=== PATIENT | male | born 1945 | race Caucasian/White ===

== ENCOUNTER 2022-06-16 13:04 | Emergency (ER) | payer OTHER ==
--- OUTSIDE RECORDS SUMMARY | 2022-06-16 13:08 | XMS REPORT | Continuity of Care Document ---
:1945 Author Organization [facility] t Address [address] [place] [address] Care Team Providers Name Role Phone Miller_S_AH Attending Clinician Unavailable Jayashree-Mbayo_A_AH Attending Clinician Unavailable Miller_S_AH Admitting Clinician Unavailable Jayashree-Mbayo_A_AH Admitting Clinician Unavailable Payers Payer Name Policy Type Policy Number Effective Date Expiration Date S keithce [employer] [place] - [id number] 2019 [employer] 00:00:00 (MEDICARE REPLACEMENT/ADVANT AGE - HMO) Problems Condition Condition Condition Status Onset Resolution Last Treating Co mments Source Name Details Category Date Date Treatment Clinician Date Rheumatoid Rheumatoid Problem Active [facility] arthritis Arthritis 01-18 Fami ly 00:00: Practic 00 e Allergies, Adverse Reactions, Alerts This patient has no known allergies or adverse reactions. Social History Smoking Status Start Date Stop Date Source Former Smoker [facility] ractice Medications This patient has no known medications. Vital Signs Vital Name Observation Time Observation Value Comments Source BP Systolic 2021-01-18 00:00:00 115 mm[Hg] [facility] Body Weight 2021-01-18 00:00:00 210 [lb_av] [facility] BP Diastolic 2021-01-18 00:00:00 80 mm[Hg] [facility] Height 2021-01-18 00:00:00 68 [in_i] [facility] BMI (Body Mass 2021-01-18 00:00:00 31.9 kg/m2 [facility]) Practice Procedures This patient has no known procedures. Plan of Care Planned Activity Planned Date Details Comments Source Future Scheduled Test Patient denies any [facility] pain or discomfirt. Practice Patient denies taking any meds at this time. Patient report he is able to see his doc when needed. Patient encouarged to choose healther food choices and increase activites as tolerated. [code = Patient denies any pain or discomfirt. Patient denies taking any meds at this time. Patient report h] Instructions [facility] Encounters Start End Encounter Admission Attending Care Care Encounter Source Date/Time Date/Time Type Type Clinicians Facility Department ID 2021-03-17 2021-03-17 Outpatient Miller_S_AH VFP VFP [id number] 06:24:00 06:24:00 [id number] Family Practic e 2021-02-16 2021-02-16 Outpatient Jayashree-Mbayo VFP VFP [facility] 02:43:00 02:43:00 _A_AH [id number] Family Practic e 2021-01-24 2021-01-24 Outpatient Jayashree-Mbayo VFP VFP [facility]94 [facility] 09:05:00 09:05:00 _A_AH [id number] Family Practic e 2021-01-23 2021-01-23 Outpatient Jayashree-Mbayo VFP VFP 794 [facility] 11:13:00 11:13:00 _A_AH [id number] Family Practic e 2021-01-19 2021-01-19 Outpatient Jayashree-Mbayo VFP VFP 794 [facility] 09:44:00 09:44:00 _A_AH [id number] Family Practic e 2021-01-18 2021-01-18 Elvia VFP [place] - [id number] [facility]00[facility] Derrick razo SOCIAL SERVICES MANAGER: Medical - Practi c [email or web address] [facility], [address] [address], [place] [address] , Ph. 2020-04-14 2020-04-14 Outpatient Jayashree-Mbayo VFP VFP [facility] 12:32:00 12:32:00 _A_AH [id number] Family Practic e 2020-04-14 2020-04-14 Outpatient Jayashree-Mbayo VFP VFP 794 [facility] 12:32:00 12:32:00 _A_AH [id number] Family Practic e 2019-11-19 2019-11-19 Outpatient JayashreeEvy VFP VFP 794 - [facility] 07:18:00 07:18:00 _A_AH [id number] Family Practic e 2019-11-19 2019-11-19 Outpatient Jayashree-Wendyo VFP VFP 794 [facility] 07:18:00 07:18:00 _A_AH [id number] Family Practic e Results This patient has no known results.
[2022-06-16 14:33] LABS: Absolute Lymphocytes (CBC) 0.7 K/uL (0.7-4.9); Hematocrit 44.4 % (39.6-49.0); MCV 82.8 fL (80-100); MPV 11.6 fL (7.6-11.3); RBC Red Blood Cell Count 5.37 M/uL (4.33-5.43)
[2022-06-16 14:35] LABS: Urine Blood 3+ (Negative); Urine Glucose Trace (Negative); Urine Protein 3+ (Negative); Urine Specific Gravity 1.025 (1.005-1.030); Urine pH 5.5 (5.0-7.0)
[2022-06-16 14:37] LABS: Protime INR 1.04
[2022-06-16 14:47] LABS: Albumin 3.8 g/dL (3.4-5.0); Bilirubin Total 0.6 mg/dL (0.2-1.0); Potassium 3.9 mmol/L (3.5-5.1); Protein, Total 7.3 g/dL (6.4-8.2)
[2022-06-16 14:56] LABS: Urine Bacteria 20-50 /HPF (<20); Urine Mucus 4+ /HPF (None Seen); Urine RBC >50 /HPF (None Seen); Urine WBC Clump Many /HPF (None Seen)
[2022-06-16] MEDS ORDERED: LIDOCAINE VISCOUS 2% SOLN 15 ML UDC ONE (15:21)
[2022-06-16] MEDS ORDERED: levoFLOXacin 750 MG TAB ONE (15:21)
[2022-06-16] MEDS ORDERED: CEFTRIAXONE 1000 MG/VIAL ONE (15:21)
--- NOTE | 2022-06-16 15:37 | RAD REPORT ---
EXAM DESCRIPTION: CTStone Protocol - 06/16/2022 3:20 pm CLINICAL HISTORY: hematuria COMPARISON: Stone Protocol dated 05/29/2016; CT-STONE PROTOCOL dated 05/18/2009 TECHNIQUE: CT of the abdomen and pelvis was performed. All CT scans are performed using dose optimization technique as appropriate and may include automated exposure control or mA/KV adjustment according to patient size. FINDINGS: Lower chest: Scattered coronary artery calcifications. Liver: No acute abnormality or suspicious lesions. Biliary: Cholecystectomy. Stomach: No significant focal abnormality. Duodenum: No significant focal abnormality. Pancreas: No significant abnormality. Spleen: No significant abnormality. Adrenal: No suspicious lesions. Kidney/ureter: No hydronephrosis. No renal calculi. Retroperitoneum: No retroperitoneal adenopathy. Vascular: No aneurysm. Bowel: No significant focal abnormality. Normal appendix. Peritoneum: No ascites or free air. Bladder: The bladder is largely obscured by streak artifact. The wall does appear thick and stranding may be present. Reproductive: No adnexal masses. Bones: No acute fracture. Bilateral shoulder arthroplasties. Bridging osteophytes in the lower thorac ic spine. Other: n/a IMPRESSION: No acute intra-abdominal or pelvic finding. No urinary tract calculi identified. Note th at the bladder wall is probably thick but the bladder is largely obscured by streak artifact from the hip arthroplasties. Cystoscopy could better evaluate if clinically indicated.
--- NOTE | 2022-06-16 16:13 | EDPHYS ---
Physician Documentation [facility] Name: Rj Parkinson Age: 76 yrs Sex: Male : 1945 Arrival Date: 06/16/2022 Time: 13:09 Bed 13 Private MD: Gopi Thacker ED Physician Jacky Winkler HPI: 06/16 13:50 This 76 yrs old Male presents to ER via Ambulatory with complaints of Urinary Retention.cp 13:50 The patient presents with urinary symptoms, unable to void, hematuria. cp 13:50 Onset: The symptoms/episode began/occurred last night. cp 13:50 Associated signs and symptoms: Pertinent positives: pelvic pain, Pertinent negatives: cp constipation, diarrhea, fever, vomiting. Severity of symptoms: in the emergency department the symptoms are unchanged, despite home interventions. Historical: - Allergies: 13:29 Latex, Natural Rubber; kr3 - Home Meds: 16:21 glipizide 10 mg Oral tab 2 times per day [Active]; Lyrica Oral [Active]; Nexium 20 mg jg9 Oral cpDR 2 times per day [Active]; nisoldipine 17 mg Oral Tb24 BID [Active]; - PMHx: 13:29 Cancer; kr3 16:21 Cholelithiasis; COPD; Diabetes - IDDM; jg9 - PSHx: 13:29 hip replacement x2; kr3 - Immunization history:: Adult Immunizations not up to date. - Social history:: Smoking status: Patient reports use of chewing tobacco. ROS: 13:55 Constitutional: Negative for body aches, chills, fever, poor PO intake. cp 13:55 Eyes: Negative for injury, pain, redness, and discharge. cp 13:55 ENT: Negative for drainage from ear(s), ear pain, sore throat, difficulty swallowing, difficulty handling secretions. 13:55 Cardiovascular: Negative for chest pain, edema, palpitations. 13:55 Respiratory: Negative for cough, shortness of breath, wheezing. 13:55 Abdomen/GI: Negative for vomiting, diarrhea, constipation. 13:55 Back: Negative for pain at rest, pain with movement. 13:55 : Positive for pelvic pain, hematuria, difficulty urinating, Negative for testicular pain 13:55 Neuro: Negative for altered mental status, headache, syncope, weakness. 13:55 All other systems are negative. Exam: 14:00 Constitutional: The patient appears in no acute distress, alert, awake, cp non-diaphoretic, non-toxic, well developed, well nourished. 14:00 Head/Face: Normocephalic, atraumatic. cp 14:00 Eyes: Periorbital structures: appear normal, Conjunctiva: normal, no exudate, no injection, Sclera: no appreciated abnormality, Lids and lashes: appear normal, bilaterally. 14:00 ENT: External ear(s): are unremarkable, Nose: is normal, Mouth: Lips: moist, Oral mucosa: pink and intact, moist, Posterior pharynx: Airway: no evidence of obstruction, patent. 14:00 Chest/axilla: Inspection: normal. 14:00 Cardiovascular: Rate: normal, Edema: is not appreciated, JVD: is not appreciated. 14:00 Respiratory: the patient does not display signs of respiratory distress, Respirations: normal, no use of accessory muscles, no retractions, labored breathing, is not present, Breath sounds: are clear throughout. 14:00 Abdomen/GI: Exam negative for discomfort, distension, guarding, Inspection: abdomen appears normal. 14:00 Back: pain, is absent, ROM is normal. 14:00 Neuro: Orientation: to person, place \T\ time. Mentation: is normal, Motor: moves all fours, strength is normal, Gait: is steady. Vital Signs: 13:27 BP 148 / 69; Pulse 78; Resp 20; Temp 97.9; Pulse Ox 98% on R/A; Weight 93.89 kg; Height kr3 5 ft. 8 in. (172.72 cm); Pain 10/10; 16:00 BP 130 / 78; Pulse 80; Resp 17 S; Pulse Ox 97% on R/A; jg9 13:27 Body Mass Index 31.47 (93.89 kg, 172.72 cm) kr3 MDM: 13:37 Patient medically screened. cp 14:00 Differential diagnosis: UTI, urinary retention, prostatitis, urethritis. cp 16:12 Data reviewed: vital signs, nurses notes, lab test result(s), radiologic studies, CT cp scan. 16:12 Counseling: I had a detailed discussion with the patient and/or guardian regarding: the cp historical points, exam findings, and any diagnostic results supporting the discharge/admit diagnosis, lab results, radiology results, the need for outpatient follow up, a urologist, to return to the emergency department if symptoms worsen or persist or if there are any questions or concerns that arise at home. Response to treatment: the patient's symptoms have markedly improved after treatment, and as a result, I will discharge patient. 06/16 13:45 Order name: CBC with Diff; Complete Time: 14:53 06/16 14:53 Interpretation: Normal except: PLT 131; MPV 11.6; JIGNESH% 81.9; LYM% 8.0. 06/16 13:45 Order name: CMP; Complete Time: 14:53 06/16 13:45 Order name: Lipase; Complete Time: 14:53 06/16 13:45 Order name: Urine Microscopic Only; Complete Time: 15:02 06/16 13:45 Order name: PT-INR; Complete Time: 14:53 06/16 13:45 Order name: Ptt, Activated; Complete Time: 14:53 06/16 13:45 Order name: IV Saline Lock; Complete Time: 14:36 06/16 13:45 Order name: Labs collected and sent; Complete Time: 14:36 06/16 14:36 Order name: Urine Dipstick-Ancillary; Complete Time: 14:53 [facility] 06/16 14:54 Interpretation: Normal except: UKET 1+; UBLD 3+; UPROT 3+; UNIT Positive; UESTR 3+. 06/16 15:00 Order name: Urine Culture [facility] 06/16 15:04 Order name: CT Stone Protocol 06/16 15:08 Order name: Stone Protocol; Complete Time: 16:07 [facility] 06/16 13:45 Order name: Urine Dipstick-Ancillary (obtain specimen); Complete Time: 14:36 Administered Medications: 15:48 Drug: Rocephin (cefTRIAXone) 1 grams Route: IV; Rate: calculated rate; Site: right jg9 antecubital; 16:22 Follow up: IV Status: Completed infusion; IV Intake: 10ml j9 15:48 Drug: LevaQUIN (levofloxacin) 750 mg Route: PO; 9 16:22 Follow up: Response: No adverse reaction j9 Disposition Summary: 06/16/22 16:12 Discharge Ordered Location: Home cp Problem: new cp Symptoms: have improved cp Condition: Stable cp Diagnosis - UTI/ Urinary tract infection, site not specified cp Followup: cp - With: Pravin Winters MD - When: next week as scheduled - Reason: Recheck today's complaints Discharge Instructions: - Discharge Summary Sheet cp - Urinary Tract Infection, Adult cp Forms: - Medication Reconciliation Form cp - Thank You Letter cp - Antibiotic Education cp - Prescription Opioid Use cp Prescriptions: - cefpodoxime 200 mg Oral Tablet - take 1 tablet by ORAL route every 12 hours for 10 days with food; 20 tablet; cp Refills: 0, Product Selection Permitted Signatures: Dispatcher [employer] EDMS Bradley Hoff PA PA cp Beth Olivas RN RN jg9 Maryan Tierney RN RN kr3 Corrections: (The following items were deleted from the chart) 15:43 13:45 Kerns ordered. cp jg9
--- NOTE | 2022-06-16 16:13 | ER ---
Nurse's Notes [facility] Name: Rj Parkinson Age: 76 yrs Sex: Male : 1945 Arrival Date: 06/16/2022 Time: 13:09 Bed 13 Private MD: Gopi Thacker Diagnosis: UTI/ Urinary tract infection, site not specified Presentation: 06/16 13:27 Chief complaint: Patient states: severe pain in pelvic area, bloody urine last night kr3 when urinating 06/15/2022. Coronavirus screen: Vaccine status: Patient reports being unvaccinated. Client denies travel out of the [place] in the last 14 days. Ebola Screen: Patient denies travel to an Ebola-affected area in the 21 days before illness onset. Initial Sepsis Screen: Does the patient meet any 2 criteria? No. Patient's initial sepsis screen is negative. Does the patient have a suspected source of infection? Yes: Dysuria/Frequency/Urgency/UTI. Risk Assessment: Do you want to hurt yourself or someone else? Patient reports no desire to harm self or others. Onset of symptoms was June 15, 2022. 13:27 Method Of Arrival: Ambulatory kr3 13:27 Acuity: DHARA 3 kr3 Triage Assessment: 13:31 General: Appears distressed, uncomfortable, Behavior is calm, cooperative, appropriate kr3 for age. General: Behavior is. Pain: Complains of pain in suprapubic area Pain currently is 10 out of 10 on a pain scale. Historical: - Allergies: 13:29 Latex, Natural Rubber; kr3 - Home Meds: 16:21 glipizide 10 mg Oral tab 2 times per day [Active]; Lyrica Oral [Active]; Nexium 20 mg jg9 Oral cpDR 2 times per day [Active]; nisoldipine 17 mg Oral Tb24 BID [Active]; - PMHx: 13:29 Cancer; kr3 16:21 Cholelithiasis; COPD; Diabetes - IDDM; jg9 - PSHx: 13:29 hip replacement x2; kr3 - Immunization history:: Adult Immunizations not up to date. - Social history:: Smoking status: Patient reports use of chewing tobacco. Screenin:08 Abuse screen: Denies threats or abuse. Denies injuries from another. Nutritional jg9 screening: No deficits noted. Tuberculosis screening: No symptoms or risk factors identified. Fall Risk. Assessment: 16:00 Reassessment: patient reports he feels better and he has urinated a couple times since jg9 the Kerns was removed. Patient states feeling better. Patient states symptoms have improved. Vital Signs: 13:27 BP 148 / 69; Pulse 78; Resp 20; Temp 97.9; Pulse Ox 98% on R/A; Weight 93.89 kg; Height kr3 5 ft. 8 in. (172.72 cm); Pain 10/10; 16:00 BP 130 / 78; Pulse 80; Resp 17 S; Pulse Ox 97% on R/A; jg9 13:27 Body Mass Index 31.47 (93.89 kg, 172.72 cm) kr3 ED Course: 13:09 Patient arrived in ED. mr 13:09 Gopi Thacker MD is Private Physician. mr 13:29 Triage completed. kr3 13:32 Arm band placed on right wrist. kr3 13:37 Bradley Hoff PA is PHCP. cp 13:37 Jacky Winkler MD is Attending Physician. cp 13:51 Galilea Alvarez, MARTA is Primary Nurse. ll1 14:36 Urine collected: clean catch specimen, donald colored, blood tinged, israel blood. jw7 14:36 CMP Sent. jw7 14:36 Lipase Sent. jw7 14:36 Urine Microscopic Only Sent. jw7 14:37 Initial lab(s) drawn, by ne, sent to lab. Inserted saline lock: 20 gauge in right jw7 antecubital area, using aseptic technique. Blood collected. 14:37 PT-INR Sent. jw7 14:37 Ptt, Activated Sent. jw7 15:22 Stone Protocol In Process Unspecified. EDMS 16:00 Patient has correct armband on for positive identification. Bed in low position. Call jg9 light in reach. Side rails up X 1. 16:07 CT Stone Protocol Sent. jg9 16:08 IV discontinued. jg9 16:11 Pravin Winters MD is Referral Physician. cp 16:20 No provider procedures requiring assistance completed. jg9 Administered Medications: 15:48 Drug: Rocephin (cefTRIAXone) 1 grams Route: IV; Rate: calculated rate; Site: right jg9 antecubital; 16:22 Follow up: IV Status: Completed infusion; IV Intake: 10ml jg9 15:48 Drug: LevaQUIN (levofloxacin) 750 mg Route: PO; jg9 16:22 Follow up: Response: No adverse reaction jg9 Medication: 16:21 VIS not applicable for this client. jg9 Intake: 16:22 IV: 10ml; Total: 10ml. jg9 Outcome: 16:12 Discharge ordered by . dami 16:21 Discharged to home ambulatory. jg9 16:21 Condition: improved 16:21 Discharge instructions given to patient, Instructed on discharge instructions, follow up and referral plans. Demonstrated understanding of instructions, follow-up care, Prescriptions given X 1. 16:21 Patient left the ED. jg9 Signatures: Dispatcher [employer] [facility] ShalomChristie Corey, PA PA cp Lewis, Lynsay, RN RN ll1 Beth Olivas RN RN jg9 Krista Alvares7 Maryan Tierney RN RN kr3
[2022-06-17 23:36] VITALS: BP 130/78; O2SAT 97
[2022-06-17 23:43] VITALS: TEMP 97.9
== END 2022-06-16 16:21 | disposition home or self-care (01) ==
LOC: ER 13:04
DX: N39.0 Urinary tract infection, site not specified (principal); E11.9 Type 2 diabetes mellitus without complications; F17.220 Nicotine dependence, chewing tobacco, uncomplicated
CPT/HCPCS: 36415; 74176; 76377; 80053; 81003; 81015; 83690; 85025; 85610; 85730; 87086; 87088; 96365; 99284

== ENCOUNTER 2024-05-05 10:15 | Emergency (ER) | payer OTHER ==
--- OUTSIDE RECORDS SUMMARY | 2024-05-05 10:18 | XMS REPORT | Continuity of Care Document ---
Author Name Unknown Address [address] [facility] [address] [id number] [facility] Address [address] [facility] [address] [place] [address] Care Team Providers Care Oak Tanner Name Role Phone Gopi Thacker Attending Clinician Unavailable Miller_S_AH Attending Clinician Unavailable Jayashree-Mbayo_A_AH Attending Clinician Unavailable Miller_S_AH Admitting Clinician Unavailable Jayashree-Mbayo_A_AH Admitting Clinician Unavailable Payers Payer Name Policy Type Policy Number Effective Date Expirati on Date Source [employer] Preferred Medicare (HMO) 53 [id number] [facility] (MEDICARE REPLACEMENT/ADV ANTAGE - HMO) [id number] 2019 00:00:00 Problems Condition Name Condition Details Condition Category Status Onset Date Resolution Date Last Treatment Date Treating Clinician Comments Source Rheumatoid arthritis Rheumatoid Arthritis Problem Active 01-18 00:00: [address] [facility] e [id number] Gross hematuria Problem [facility] [id number] Prostate cancer Problem [facility] [id number] History of prostate cancer Problem [facility] [id number] Acquired phimosis of penis Problem [facility] [id number] S/P radiation therapy Problem [facility] [id number] Lower urinary tract symptoms (LUTS) Problem 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 Personal history of primary malignant neoplasm of urinary bladder History of primary bladder cancer Problem [facility] [id number] Type 2 diabetes mellitus with diabetic neuropathy , without long-term current use of insulin Problem [facility] [id number] Chronic obstructiv e pulmonary disease, unspecifie d COPD type Problem [facility] Social History Social Habit Start Date Stop Date Quantity Comments Source History of Tobacco Use [facility] Sex Assigned At [facility] Smoking Status Start Date Stop Date Source Former Smoker 2022-08-23 00:00:00 2022-08-23 00:00:00 [facility] Medications Ordered Medication Name Filled Medication Name Start Date Stop Date Current Medication? Ordering Clinician Indication Dosage Frequency Signature (SIG) Comments Components Source Clotrimazol e-Betametha sone 1-0.05 % Clotrimazol e-Betametha sone 1-0.05 % 2021-10 00:00: 00 10-25 00:00 :00 No BID Clotrimazo le-Betamet hasone 1-0.05 % Flomax Flomax No Flomax Cipro 500 MG Cipro 500 MG No 1{table t} BID Cipro 500 MG No Known Medications No Known Medications No [facility] Vital Signs Vital Name Observation Time Observation Value Comments S ource height 2022-08-23 14:30:00 68 [in_i] Commo n [facility] weight 2022-08-23 14:30:00 215 [lb_av] Comm on [facility] temperature 2022-08-23 14:30:00 97.5 [degF] Com mon [facility] bmi 2022-08-23 14:30:00 32.69 kg/m2 Comm on [facility] oximetry 2022-08-23 14:30:00 98 % Commo n [facility] respiratory rate 2022-08-23 14:30:00 18 /min [facility] blood pressure systolic 2022-08-23 14:30:00 146 mm[Hg] [facility] blood pressure diastolic 2022-08-23 14:30:00 68 mm[Hg] [facility] height 2022-08-02 11:30:00 68 [in_i] Commo n [facility] weight 2022-08-02 11:30:00 211 [lb_av] Comm on [facility] temperature 2022-08-02 11:30:00 97.3 [degF] Com mon [facility] bmi 2022-08-02 11:30:00 32.08 kg/m2 Comm on [facility] oximetry 2022-08-02 11:30:00 97 % Commo n [facility] respiratory rate 2022-08-02 11:30:00 16 /min [facility] blood pressure systolic 2022-08-02 11:30:00 163 mm[Hg] [facility] blood pressure diastolic 2022-08-02 11:30:00 73 mm[Hg] [facility] BP Systolic 2021-01-18 00:00:00 115 mm[Hg] [facility] Body Weight 2021-01-18 00:00:00 210 [lb_av] [facility] BP Diastolic 2021-01-18 00:00:00 80 mm[Hg] [facility] Height 2021-01-18 00:00:00 68 [in_i] [facility] BMI (Body Mass Index) 2021-01-18 00:00:00 31.9 kg/m2 [facility] Plan of Care Planned Activity Planned Date Details Comments Source Future Scheduled Test Patient de nies any pain or discomfirt. Patient denies taking any meds at this time. Patient report he is able to see his doc when needed. Patient encouarged to choose healther food choices and increase activites as tolerated. [code = Patient denies any pain or discomfirt. Patient denies taking any meds at this time. Patient report h] [facility] Instructions [facility] Encounters Start Date/Time End Date/Time Encounter Type Admission Type Attending Clinicians Care Facility Care Department Encounter ID Source 2022-08-02 11:23:07 [facility] [id number] [facility] 2022-08-29 00:00:00 2022-08-29 00:00:00 [facility]TEL) [facility] [id number] [facility] 2022-08-23 00:00:00 2022-08-23 00:00:00 OFFICE VISIT ESTAB PT LEVEL [id number] [facility] 2022-08-02 00:00:00 2022-08-02 00:00:00 OFFICE VISIT NEW PT LEVEL 4 [facility] [id number] [facility] 2021-03-17 06:24:00 2021-03-17 06:24:00 Outpatient Miller_S_AH VFP VFP [id number] [facility] 2021-02-16 02:43:00 2021-02-16 02:43:00 Outpatient Jayashree-Mbayo _A_AH VFP VFP [id number] [facility] 2021-01-24 09:05:00 2021-01-24 09:05:00 Outpatient Jayashree-Mbayo _A_AH VFP VFP [id number] [facility] 2021-01-23 11:13:00 2021-01-23 11:13:00 Outpatient Jayashree-Mbayo _A_AH VFP VFP [id number] [facility] 2021-01-19 09:44:00 2021-01-19 09:44:00 Outpatient Jayashree-Mbayo _A_AH VFP VFP [id number] [facility] 2021-01-18 00:00:00 2021-01-18 00:00:00 Elvia razo, TRANSCRIBING OPERATOR HEAD: [address], [address], [place] [address] , Ph. VFP [place] - [facility] - [email or web address]_ [email or web address] [facility] [id number] [facility] 2020-04-14 12:32:00 2020-04-14 12:32:00 Outpatient Jayashree-Mbayo _A_AH VFP VFP [id number] [facility] 2020-04-14 12:32:00 2020-04-14 12:32:00 Outpatient Jayashree-Mbayo _A_AH VFP VFP [id number] [facility] 2019-11-19 07:18:00 2019-11-19 07:18:00 Outpatient Jayashree-Mbayo _A_AH VFP VFP [id number] [facility] 2019-11-19 07:18:00 2019-11-19 07:18:00 Outpatient Jayashree-Mbayo _A_AH VFP VFP [id number] [facility]
[2024-05-05] MEDS ORDERED: KETOROLAC 30 MG/ML INJ ONE (11:24)
[2024-05-05] MEDS ORDERED: ACETAMINOPHEN 500 MG TAB ONE (11:24)
[2024-05-05] MEDS ORDERED: LIDOCAINE 4% PATCH ONE (11:25)
[2024-05-05] MEDS ORDERED: DIAZEPAM 5 MG TABLET ONE (11:25)
--- NOTE | 2024-05-05 12:14 | RAD REPORT ---
EXAM DESCRIPTION: RAD - Pelvis - 05/05/2024 11:44 am CLINICAL HISTORY: PAIN COMPARISON: PELVIS dated 04/28/2014 TECHNIQUE: Single AP view of the pelvis. FINDINGS: The visualized pelvic ring is intact. No suspicious osseous lesions. Bilateral total hip a rthroplasty hardware. Included components are in unchanged positioning. Heterotopic ossification cindy cent to the left greater trochanter. Other pelvic joints are unremarkable. Visualized aspects of the abdomen and soft tissues are unremarkable. IMPRESSION: No acute osseous abnormality of the bony pelvis.
--- NOTE | 2024-05-05 12:16 | RAD REPORT ---
EXAM DESCRIPTION: Sacrum And Coccyx - 05/05/2024 11:44 am CLINICAL HISTORY: PAIN COMPARISON: SPINE LUMBAR W OBLIQUE dated 10/23/2007; Stone Protocol dated 06/16/2022 TECHNIQUE: Three views of the sacrum and coccyx. FINDINGS: No evidence of acute displaced fractures or a suspicious osseous lesion. Degenerative otero ges of the lower lumbar spine are noted. No other acute or suspicious findings. IMPRESSION: No acute findings. Lower lumbar spine degenerative changes.
--- NOTE | 2024-05-05 12:25 | ER ---
Nurse's Notes [facility] Name: Rj Parkinson Age: 78 yrs Sex: Male : 1945 Arrival Date: 05/05/2024 Time: 10:15 Bed 10 Private MD: Diagnosis: Low back pain Presentation: 05/05 10:38 Chief complaint: Patient states: Fell at least two weeks ago. L knee pain and low back hb pain since. Coronavirus screen: Client denies travel out of the [place] in the last 14 days. At this time, the client does not indicate any symptoms associated with coronavirus-19. Ebola Screen: Patient denies travel to an Ebola-affected area in the 21 days before illness onset. Initial Sepsis Screen: Does the patient meet any 2 criteria? No. Patient's initial sepsis screen is negative. Does the patient have a suspected source of infection? No. Patient's initial sepsis screen is negative. Risk Assessment: Do you want to hurt yourself or someone else? Patient reports no desire to harm self or others. Onset of symptoms was April 21, 2024. 10:38 Method Of Arrival: Wheelchair hb 10:38 Acuity: DHARA 4 hb 13:18 Care prior to arrival: None. Mechanism of Injury: Fall. Trauma event details: Injury ll1 occurred in the [facility]. Triage Assessment: 13:18 General: Appears in no apparent distress. Behavior is calm, cooperative, appropriate ll1 for age. Trauma Activation: Not Applicable Physician: ED Physician; Name: ; Notified At: ; Arrived At: Physician: General Surgeon; Name: ; Notified At: ; Arrived At: Physician: Radiology; Name: ; Notified At: ; Arrived At: Physician: Respiratory; Name: ; Notified At: ; Arrived At: Physician: Lab; Name: ; Notified At: ; Arrived At: Historical: - Allergies: 10:40 Latex; hb - PMHx: 10:40 Cancer; Cholelithiasis; COPD; Diabetes - IDDM; hb - PSHx: 10:40 hip replacement x2; hb - Immunization history:: Adult Immunizations up to date. - Infectious Disease History:: Denies. - Immunization history: Last tetanus immunization: - up to date. - Social history:: Smoking status: Patient denies any tobacco usage or history of. Screenin:15 [facility] ED Fall Risk Assessment (Adult) History of falling in the last 3 months, ll1 including since admission Yes- single mechanical fall (1 pt) Confusion or Disorientation No (0 pts) Intoxicated or Sedated No (0 pts) Impaired Gait Yes (1 pt) Mobility Assist Device Used Yes (1 pt) Altered Elimination No (0 pt) Score/Fall Risk Level 3 or more points = High Risk Maintained a safe environment, Hourly rounding (assess needs \T\ fall precautionary measures) done. Abuse screen: Denies threats or abuse. Nutritional screening: No deficits noted. Tuberculosis screening: No symptoms or risk factors identified. Primary Survey: 12:29 NO uncontrolled hemorrhage observed. A: The client is awake and alert. The airway is ll1 patent. Breathing/Chest: Spontaneous respiratory effort, equal unlabored respirations, breath sounds clear bilaterally, regular pattern, symmetrical chest rise and fall. Circulation: No external hemorrhage present. Regular and strong central pulse, skin warm/dry/normal color. Disability Client is alert. Exposure/Environment: There is no evidence of uncontrolled external bleeding. 13:17 Reassessment Alertness and Airway: Awake and alert. The airway is patent. Breathing: ll1 Spontaneous respiratory effort, equal unlabored respirations, breath sounds clear bilaterally, regular pattern with symmetrical chest rise and fall. Circulation: No external hemorrhage noted. Regular and strong central pulse, skin warm/dry/normal color. Disability: Alert. Assessment: 10:38 General: Appears uncomfortable, Behavior is calm, cooperative, appropriate for age. ll1 Pain: Complains of pain in back Pain radiates to left leg. Musculoskeletal: Circulation, motion, and sensation intact. Capillary refill < 3 seconds, Reports pain in back and left leg. Vital Signs: 10:38 BP 155 / 70; Pulse 52; Resp 17; Temp 97.6; Pulse Ox 97% on R/A; Weight 90.72 kg; Height hb 5 ft. 7 in. ; 10:38 Body Mass Index 31.32 (90.72 kg, 170.18 cm) hb [place] Coma Score: 13:17 Eye Response: spontaneous(4). Motor Response: obeys commands(6). Verbal Response: ll1 oriented(5). Total: 15. Trauma Score (Adult): 13:17 Eye Response: spontaneous(1); Verbal Response: oriented(1); Motor Response: obeys ll1 commands(2); Systolic BP: > 89 mm Hg(4); Respiratory Rate: 10 to 29 per min(4); [place] Score: 15; Trauma Score: 12 ED Course: 10:18 Patient arrived in ED. ra3 10:20 Carlos Campa MD is Attending Physician. ec2 10:38 Arm band placed on. hb 10:40 Triage completed. hb 11:45 Pelvis XRAY In Process Unspecified. EDMS 11:45 Sacrum And Coccyx XRAY In Process Unspecified. EDMS 13:18 Patient has correct armband on for positive identification. Provided Education on: ll1 return for worsening symptoms. 13:18 No provider procedures requiring assistance completed. Patient did not have IV access ll1 during this emergency room visit. 13:19 Patient maintains SpO2 saturation greater than 95% on room air. ll1 13:19 Thermoregulation: warm blanket given to patient. ll1 Administered Medications: 11:55 Drug: Ketorolac IM 30 mg IM once Route: IM; Site: left vastus lateralis; ll1 13:20 Follow up: Response: No adverse reaction ll1 11:55 Drug: Lidoderm Topical Patch 5 % (700 mg/patch) 1 patches Topical once; leave on for 12 ll1 hours; cover most painful area; may cut into smaller pieces {Note: low back.} Route: Topical; Site: affected area; 13:20 Follow up: Response: No adverse reaction ll1 11:55 Drug: Diazepam PO 10 mg PO once {Note: pain 8/10.} Route: PO; ll1 13:20 Follow up: Response: No adverse reaction; Pain is decreased; RASS: Alert and Calm (0) ll1 11:55 Drug: Acetaminophen PO 1000 mg PO once Route: PO; ll1 13:20 Follow up: Response: No adverse reaction ll1 Medication: 13:19 VIS not applicable for this client. ll1 Intake: 13:19 PO: 100ml (Water); Total: 100ml. ll1 Output: 13:19 Urine: 0ml; Total: 0ml. ll1 Outcome: 12:24 Discharge ordered by . ec2 12:29 Patient left the ED. ll1 13:18 Discharged to home ambulatory, ll1 13:18 Condition: stable 13:18 Discharge instructions given to patient, Instructed on discharge instructions, follow up and referral plans. no drinking with medication, no driving heavy equipment, medication usage, Demonstrated understanding of instructions, follow-up care, medications, Prescriptions given X 1, 13:19 Patient's length of stay was not longer than 2 hours. ll1 Signatures: Dispatcher [employer] EDGudelia Betancourt RN RN hb Lewis, Lynsay, RN RN ll1 Carlos Campa MD MD ec2 Miranda Mcrae 3
--- NOTE | 2024-05-05 12:25 | EDPHYS ---
Physician Documentation [facility] Name: Rj Parkinson Age: 78 yrs Sex: Male : 1945 Arrival Date: 05/05/2024 Time: 10:15 Bed 10 Private MD: ED Physician Carlos Campa HPI: 05/05 10:42 This 78 yrs old Male presents to ER via Wheelchair with complaints of Fall ec2 Injury, Back Pain. 10:42 Patient arrives today for low back pain. Patient reports he is having pain near the ec2 buttock region. Patient reports pain is left-sided, reports no falls injuries or trauma recently, states he did have a fall several weeks ago. States he is having worsening pain however has not tried any medications at home. Patient reports no red flag symptoms. Also is concerned about his previous hip replacements.. Historical: - Allergies: 10:40 Latex; hb - PMHx: 10:40 Cancer; Cholelithiasis; COPD; Diabetes - IDDM; hb - PSHx: 10:40 hip replacement x2; hb - Immunization history:: Adult Immunizations up to date. - Infectious Disease History:: Denies. - Immunization history: Last tetanus immunization: - up to date. - Social history:: Smoking status: Patient denies any tobacco usage or history of. ROS: 10:42 Constitutional: as per hpi ec2 Exam: 10:42 Constitutional: GEN: NAD Head: atraumatic Eyes: EOMI Ears: External ears are ec2 normal. CV: regular rate LUNGS: no respiratory distress ABD: non-distended SKIN: no evidence of rashes MSK: no evidence of trauma, reproducible sacrum TTP, no deformities or crepitus, left paraspinal TTP as well. NEURO: moves all extremities equally Vital Signs: 10:38 BP 155 / 70; Pulse 52; Resp 17; Temp 97.6; Pulse Ox 97% on R/A; Weight 90.72 kg; Height hb 5 ft. 7 in. ; 10:38 Body Mass Index 31.32 (90.72 kg, 170.18 cm) hb Shock Coma Score: 13:17 Eye Response: spontaneous(4). Motor Response: obeys commands(6). Verbal Response: ll1 oriented(5). Total: 15. Trauma Score (Adult): 13:17 Eye Response: spontaneous(1); Verbal Response: oriented(1); Motor Response: obeys ll1 commands(2); Systolic BP: > 89 mm Hg(4); Respiratory Rate: 10 to 29 per min(4); Shock Score: 15; Trauma Score: 12 MDM: 10:34 Patient medically screened. ec2 10:42 Data reviewed: vital signs. ED course: Patient arrives today for evaluation of sacral ec2 pain. Examination remarkable for muscular findings as above. Will obtain radiographs and treat the patient's symptoms. Suspect strain, additionally considering sciatica. Doubt fracture. . 12:18 ED course: Pelvis x-ray independently reviewed and interpreted by me, showed no bony ec2 fracture. Sacral x-ray with no bony pathology. Will discharge home and have the patient follow-up outpatient expectantly. Return precautions given.. 08 10:42 Order name: Pelvis XRAY; Complete Time: 12:17 ec2 05/05 10:42 Order name: Sacrum And Coccyx XRAY; Complete Time: 12:17 ec2 Administered Medications: 11:55 Drug: Ketorolac IM 30 mg IM once Route: IM; Site: left vastus lateralis; ll1 13:20 Follow up: Response: No adverse reaction ll1 11:55 Drug: Lidoderm Topical Patch 5 % (700 mg/patch) 1 patches Topical once; leave on for 12 ll1 hours; cover most painful area; may cut into smaller pieces {Note: low back.} Route: Topical; Site: affected area; 13:20 Follow up: Response: No adverse reaction ll1 11:55 Drug: Diazepam PO 10 mg PO once {Note: pain 8/10.} Route: PO; ll1 13:20 Follow up: Response: No adverse reaction; Pain is decreased; RASS: Alert and Calm (0) ll1 11:55 Drug: Acetaminophen PO 1000 mg PO once Route: PO; ll1 13:20 Follow up: Response: No adverse reaction ll1 Disposition Summary: 05/05/24 12:24 Discharge Ordered Notes: Location: Home ec2 Condition: Stable ec2 Diagnosis - Low back pain ec2 Followup: ec2 - With: Private Physician - When: - Reason: Re-evaluation by your physician Discharge Instructions: - Discharge Summary Sheet ec2 - Acute Back Pain, Adult ec2 Forms: - Medication Reconciliation Form ec2 - Antibiotic Education ec2 - Prescription Opioid Use ec2 - Patient Portal Instructions ec2 - Leadership Thank You Letter ec2 Prescriptions: - methocarbamol 500 mg Oral tablet - take 1 tablet ORAL route 4 times per day; 30 tablet; Refills: 0, Product ec2 Selection Permitted Signatures: Dispatcher [employer] Gudelia Lua RN RN Galilea Alvarez RN RN ll1 Carlos Campa MD MD ec2
[2024-05-05 14:33] VITALS: BP 155/70; TEMP 97.6; O2SAT 97
== END 2024-05-05 12:29 | disposition home or self-care (01) ==
LOC: ER 10:15
DX: M54.50 Low back pain, unspecified (principal)
CPT/HCPCS: 72220; 72170; 96372; 99284; J2001

== ENCOUNTER 2024-07-17 14:20 | Inpatient (IN) | payer OTHER ==
--- OUTSIDE RECORDS SUMMARY | 2024-07-17 16:30 | XMS REPORT | Continuity of Care Document ---
Author Name Unknown Address [address] [facility] [address] [id number] [facility] Address [address] [facility] [address] [place] [address] Care Team Providers Care Dance Critic Name Role Phone PCP, PATIENT DOES NOT HAVE A Primary Care Physic jordyn Unavailable Gopi Thacker Attending Clinician Unavailable KODAK ALTMAN Attending Clinician UnavailKODAK Peter Attending Clinician Unavailkendall Dumas_S_AH Attending Clinician Unavailable Jayashree-Mbayo_A_AH Attending Clinician Unavailable Miller_S_AH Admitting Clinician Unavailable Jayashree-Mbayo_A_AH Admitting Clinician Unavailable Payers Payer Name Policy Type Policy Number Effective Date Expirati on Date Source [employer] HMO [id number] 2021 00:00:00 [place] [employer] [id number] 2016 00:00:00 2024 00:00:00 [employer] Preferred Medicare (HMO) [id number] [facility] [place] (MEDICARE REPLACEMENT/ADV ANTAGE - HMO) [id number] 2019 00:00:00 Problems Condition Name Condition Details Condition Category Status Onset Date Resolution Date Last Treatment Date Treating Clinician Comments Source Rheumatoid arthritis Rheumatoid Arthritis Problem Active 01-18 00:00: 00 [facility] [id number] Gross hematuria Problem [facility] [id number] Prostate cancer Problem [facility] [id number] History of prostate cancer Problem [facility] [id number] Acquired phimosis of penis Problem [facility] [id number] S/P radiation therapy Problem [facility] [id number] Lower urinary tract symptoms (LUTS) Problem 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 Personal history of primary malignant neoplasm of urinary bladder History of primary bladder cancer Problem [facility] [id number] Type 2 diabetes mellitus with diabetic neuropathy , without long-term current use of insulin Problem [facility] [id number] Chronic obstructiv e pulmonary disease, unspecifie d COPD type Problem [facility] Allergies, Adverse Reactions, Alerts Allergy Name Allergy Type Status Severity Reaction(s) Onset Date Inactive Date Treating Clinician Comments Source NO KNOWN ALLERGIE S Drug Class Active [facility] Social History Social Habit Start Date [...] Name Observation Time Observation Value Comments S keithce height 2022-08-23 14:30:00 68 [in_i] [facility] weight 2022-08-23 14:30:00 215 [lb_av] [facility] temperature 2022-08-23 14:30:00 97.5 [degF] Com [facility] bmi 2022-08-23 14:30:00 32.69 kg/m2 [facility] oximetry 2022-08-23 14:30:00 98 % [facility] respiratory rate 2022-08-23 14:30:00 18 /min Common [facility] blood pressure systolic 2022-08-23 14:30:00 146 mm[Hg] [facility] blood pressure diastolic 2022-08-23 14:30:00 68 mm[Hg] [facility] height 2022-08-02 11:30:00 68 [in_i] [facility] weight 2022-08-02 11:30:00 211 [lb_av] [facility] temperature 2022-08-02 11:30:00 97.3 [degF] Com [facility] bmi 2022-08-02 11:30:00 32.08 kg/m2 Comm [facility] oximetry 2022-08-02 11:30:00 97 % [facility] respiratory rate 2022-08-02 11:30:00 16 /min [facility] blood pressure systolic 2022-08-02 11:30:00 163 mm[Hg] [facility] blood pressure diastolic 2022-08-02 11:30:00 73 mm[Hg] [facility] BP Systolic 2021-01-18 00:00:00 115 mm[Hg] [facility] Weight 2021-01-18 00:00:00 210 [lb_av] [facility] BP Diastolic 2021-01-18 00:00:00 80 mm[Hg] [facility] Height 2021-01-18 00:00:00 68 [in_i] [facility] BMI (Body Mass Index) 2021-01-18 00:00:00 31.9 kg/m2 [facility] Plan of Care Planned Activity Planned Date [...] meds at this time. Patient report h] [facility] Instructions [facility] Encounters Start Date/Time End Date/Time Encounter Type Admission Type Attending [facility] Care Facility Care Department Encounter ID Source 2022-08-02 11:23:07 Outpatient Gopi Thacker [facility] [id number] [facility] 2024-07-23 14:00:00 2024-07-23 14:00:00 Outpatient KODAK MORA CRAIG [facility] [id number] [facility] 2024-07-15 09:00:00 2024-07-15 09:00:00 Outpatient KODAK MORA CRAIG [facility] [id number] [facility] 2022-08-29 00:00:00 2022-08-29 00:00:00 (TEL) [facility] [id number] [facility] 2022-08-23 00:00:00 2022-08-23 00:00:00 OFFICE VISIT [facility] [id number] [facility] 2022-08-02 00:00:00 2022-08-02 00:00:00 OFFICE VISIT NEW PT LEVEL 4 [facility] [id number] [facility] 2021-03-17 06:24:00 2021-03-17 06:24:00 Outpatient Miller_S_AH [facility] [id number] [facility] e 2021-02-16 02:43:00 2021-02-16 02:43:00 Outpatient Jayashree-Wendyo _A_AH [facility] [id number] [facility] 2021-01-24 09:05:00 2021-01-24 09:05:00 Outpatient Jayashree-Mbayo _A_AH [facility] [id number] [facility] 2021-01-23 11:13:00 2021-01-23 11:13:00 Outpatient Jayashree-Mbayo _A_AH [facility] [id number] [facility] 2021-01-19 09:44:00 2021-01-19 09:44:00 Outpatient Jayashree-Mbayo _A_AH [facility] [id number] [facility] 2021-01-18 00:00:00 2021-01-18 00:00:00 Elvia razo, VP ACCOUNT DIRECTOR: [address] [facility], [address], [place] [address] , Ph. VFP [place] - [facility] - VM_HOU_V@_ [place] [employer] [id number] [facility] 2020-04-14 12:32:00 2020-04-14 12:32:00 Outpatient Jayashree-Mbayo _A_AH [facility] [id number] [facility] 2020-04-14 12:32:00 2020-04-14 12:32:00 Outpatient Jayashree-Mbayo _A_AH [facility] [id number] [facility] 2019-11-19 07:18:00 2019-11-19 07:18:00 Outpatient Jayashree-Mbayo _A_AH [facility] [id number] [facility] 2019-11-19 07:18:00 2019-11-19 07:18:00 Outpatient Jayashree-Mbayo _A_AH [facility]FP [id number] [facility]
[2024-07-17] MEDS: VANCOMYCIN 2 GM in NA CHLORIDE 0.9% 500 ML IVPB ONE (18:00)
[2024-07-17 18:03] VITALS: BMI 34.9
[2024-07-17 19:04] LABS: Absolute Eosinophils 0.2 K/uL (0-0.5); Absolute Lymphocytes (CBC) 0.7 K/uL (0.7-4.9); Absolute Monocytes 0.7 K/uL (0.1-1.3); Absolute Neutrophil 4.1 K/uL (1.8-8.0); Basophils % 0.5 % (0-1.3); Eosinophils % 2.8 % (0-4.4); Hematocrit 36.5 % (39.6-49.0); Hemoglobin 12.4 g/dL (13.6-17.9); Lymphocytes % 12.7 % (15.3-44.8); MCH 28.7 pg (27.0-35.0); MCHC 34.1 g/dL (32.0-36.0); MCV 84.4 fL (80-100); MPV 9.1 fL (7.6-11.3); Monocytes % 12.8 % (3.3-12.3); Neutrophils % 71.2 % (41.7-73.7); Platelets 233 thou/uL (152-406); RBC Red Blood Cell Count 4.33 M/uL (4.33-5.43); Red Cell Distribution Width 15.6 % (12.1-15.2)
[2024-07-17 19:18] LABS: ALT/SGPT < 14 U/L (16-61); AST/SGOT 17 U/L (15-37); Albumin 3.2 g/dL (3.4-5.0); Albumin/Globulin Ratio 0.9 (1.1-1.8); Alkaline Phosphatase 176 U/L (45-117); BUN Blood Urea Nitrogen 7 mg/dL (7-18); Bicarbonate 27 mEq/L (21-32); Bilirubin Direct 0.2 mg/dL (0-0.2); Bilirubin Indirect, Calculated 0.2 mg/dL (0.2-0.8); Bilirubin Total 0.4 mg/dL (0.2-1.0); Globulin 3.4 g/dL (2.3-3.5); Glomerular Filtration Rate 63 ml/min (=/>90); Glucose Level 148 mg/dL (74-106); Lipase 51 U/L (13-75); Magnesium 2.2 mg/dL (1.6-2.4); Protein, Total 6.6 g/dL (6.4-8.2); Sodium Level 137 mEq/L (136-145)
--- NOTE | 2024-07-17 19:48 | RAD REPORT ---
EXAMINATION: ONE VIEW CHEST XR CLINICAL INDICATION: PICC placement TECHNIQUE: Frontal chest projection is submitted. Examination is limited by patient positioning and t echnique. COMPARISON: 08/20/2016 FINDINGS: The lungs are well inflated and clear. The heart is normal in size. No displaced fractures identified . Right-sided PICC line with tip in SVC. IMPRESSION: Right-sided PICC line has its tip in SVC.
--- NOTE | 2024-07-17 20:12 | HP ---
Date of Admission: 07/17/2024 History Of Present Illness: Patient is an 78-year-old gentleman with 3-week history of cellulitis of his right leg after a fall and fracturing his right hip. The fracture was managed nonoperatively. However, patient has had some bruising on his leg and subsequently developed cellulitis with redness, edema, warmth, and increasing pain and discomfort. The patient was seeing Dr. Thacker as an outpatient. Was treated with Rocephin IM for about a week. However, his symptoms did not improve. Therefore, he has failed outpatient treatment. He has swelling, throbbing, redness, and warmth still. Denies any fevers or chills or any groin discomfort. No sore throat, runny nose, cough, headaches, or dizziness. No chest pain. No fevers or chills, at this time. Review of Systems: Otherwise, unremarkable. Past Medical History: Prostate cancer, treated with radiation. Past Surgical History: Right leg and ankle surgery, both hip replacement, and back surgery. Allergies: NO ALLERGIES. Social History: Patient denies smoking or drinking alcohol. Family History: Noncontributory except for father having an unknown type of cancer. Physical Examination: Vital Signs: Stable. He is afebrile. General: He is awake, alert, oriented x3. Head and Neck: No masses. Chest: Clear. Heart: S1, S2. Abdomen: Soft. Extremities: Bruising on the right knee. Redness, swelling and warmth on the right leg. Some epidermis slough in the bottom of the leg with some oozing of serous fluid. No open wound per se. Diminished dorsalis pedis and posterior tibial pulses. The left leg has some mild erythema, but no edema, erythema, warmth, or tenderness. There is tenderness in the right leg, however. Neuro: Nonfocal. Assessment: An 78-year-old gentleman with cellulitis of right lower extremity following a fall and the patient failed outpatient antibiotic therapy. Recommendation: Admit, IV vancomycin. ID consult to see if patient needs additional antibiotics. We will monitor the response and make further recommendations after that. The patient will need at least 2 weeks of IV antibiotics. We will get a PICC line. We will check his labs and we would manage his pain with pain medication. Plan of care discussed in detail with the patient and family. They understand and agreed to the plan. TAMI/CELINA Voice ID: [id number] MARNI
[2024-07-17] MEDS: VANCOMYCIN 1.75 GM in NA CHLORIDE 0.9% 500 ML IVPB SCH (21:00)
[2024-07-17] MEDS: Mupirocin NASAL 2 APPL/1 GM TUBE NAS SCH (21:20)
[2024-07-17] MEDS: VANCOMYCIN 1 GM/VIAL ONE (21:26)
[2024-07-17] MEDS: NA CHLORIDE 0.9% 500 ML ONE (21:27)
[2024-07-17] MEDS: HYDROCODONE/APAP 5/325 MG TAB PO PRN (22:14)
[2024-07-18] MEDS ORDERED: VANCOMYCIN 2 GM in NA CHLORIDE 0.9% 500 ML IVPB SCH (05:00)
[2024-07-18] MEDS: HYDROMORPHONE HCL 1 MG/ML INJ IV PRN (07:18)
[2024-07-18 10:36] VITALS: O2SAT 96
--- NOTE | 2024-07-18 10:57 | PN ---
Date of Progress Note: 07/18/2024 Subjective: The patient is awake and alert, feels better. Pain is better. Objective: Vital Signs: Stable, afebrile. Lines/Drains: The patient his PICC line in. Skin: The dressing is clean, dry, and intact. There is no increase in erythema. Laboratory Data: Reviewed. Assessment: Cellulitis, right leg. Recommendations: Await discharge planning and ID consult. Discharge planning is in progress. Avni martino, discharge in a day or two. /MODL Voice ID: [id number] Report ID: [id number]
[2024-07-18] MEDS: WATER FOR INJ,STERILE 10 ML IV SCH (17:01)
[2024-07-18] MEDS: ALTEPLASE 2 MG/VIAL IV SCH (17:18)
[2024-07-18] MEDS ORDERED: VANCOMYCIN 1.75 GM in NA CHLORIDE 0.9% 500 ML IVPB SCH (18:00)
--- NOTE | 2024-07-19 10:24 | DS ---
Date of Discharge: 07/19/2024 Admitting Diagnosis: Cellulitis, right lower extremity, failed outpatient therapy. Discharge Diagnosis: Cellulitis, right lower extremity, failed outpatient therapy. Hospital Course: The patient is an 78-year-old gentleman, who was admitted for IV antibiotics and he would require at least 2 weeks of IV antibiotics. PICC line was started and vancomycin was started. Discharge planning was begun. The patient had Home Health for IV antibiotics arranged for and the patient is clinically improving on vancomycin. Laboratory Data: Laboratory data reviewed. Microbiology showed no growth in the blood cultures. We will discharge the patient. Disposition: Home. Condition: Stable. Discharge Instructions: Vancomycin per protocol. Follow up with Dr. Thacker's office. Resume home medications and diet. Activity as tolerated and mild compression on both lower extremities as direct ed. Wound care as ordered. TAMI/CELINA Voice ID: [id number] Report ID: [id number]
[2024-07-19 12:39] VITALS: BP 139/60; TEMP 97.2
== END 2024-07-19 15:02 | disposition home health service (06) | DRG 603 ==
LOC: 2ND 15:30
PROVIDERS: ADMIT Surgery; ATTEND Surgery
PROC: 02HV33Z Insertion of Infusion Device into Superior Vena Cava, Percutaneous Approach (ICD-10-PCS; principal; 2024-07-17)
DX: L03.115 Cellulitis of right lower limb (principal); Z96.641 Presence of right artificial hip joint; Z85.46 Personal history of malignant neoplasm of prostate
CPT/HCPCS: 36415; 36569; 71045; 80048; 80076; 80202; 83690; 83735; 85025; 87040; 93005; 97161; J1170; J2997; J7040

== ENCOUNTER 2024-07-20 10:37 | Emergency (ER) | payer OTHER ==
--- OUTSIDE RECORDS SUMMARY | 2024-07-20 10:40 | XMS REPORT | Continuity of Care Document ---
Author Name Unknown Address [address] 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 Role Phone PCP, PATIENT DOES NOT HAVE A Primary Care Physic jordyn Unavailable Gopi Thacker Attending Clinician Unavailable KODAK ALTMAN Attending Clinician UnavailKODAK Peter Attending Clinician Unavailkendall Dumas_S_AH Attending Clinician Unavailable Jayashree-Mbayo_A_AH Attending Clinician Unavailable Miller_S_AH Admitting Clinician Unavailable Jayashree-Mbayo_A_AH Admitting Clinician Unavailable Payers Payer Name Policy Type Policy Number Effective Date Expirati on Date Source [employer] HMO [id number] 2021 00:00:00 [place] [employer] [id number] 2016 00:00:00 2024 00:00:00 Cign[employer] Preferred Medicare (HMO) [id number] [facility] [place] (MEDICARE REPLACEMENT/ADV ANTAGE - HMO) [id number] 2019 00:00:00 Problems Condition Name Condition Details Condition Category Status Onset Date Resolution Date Last Treatment Date Treating Clinician Comments Source Rheumatoid arthritis Rheumatoid Arthritis Problem Active 01-18 00:00: 00 [facility] [id number] Gross hematuria Problem [facility] [id number] Prostate cancer Problem [facility] [id number] History of prostate cancer Problem [facility] [id number] Acquired phimosis of penis Problem [facility] [id number] S/P radiation therapy Problem [facility] [id number] Lower urinary tract symptoms (LUTS) Problem [facility] [id number] 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 Problem [facility] Personal history of primary malignant neoplasm of urinary bladder History of primary bladder cancer Problem [facility] [id number] Type 2 diabetes mellitus with diabetic neuropathy , without long-term current use of insulin Problem [facility] [id number] Chronic obstructiv e pulmonary disease, unspecifie d COPD type Problem [facility] Allergies, Adverse Reactions, Alerts Allergy Name Allergy Type Status Severity Reaction(s) Onset Date Inactive Date Treating Clinician Comments Source NO KNOWN ALLERGIE S Drug Class Active [facility] Social History Social Habit Start Date Stop Date Quantity Comments Source History of Tobacco Use [facility] Sex Assigned At [facility] Smoking Status Start Date Stop Date Source Former Smoker 2022-08-23 00:00:00 2022-08-23 00:00:00 [facility] Medications Ordered Medication Name Filled Medication [...] No Known Medications No Known Medications No [facility] Vital Signs Vital Name Observation Time Observation Value Comments S keithce height 2022-08-23 14:30:00 68 [in_i] Commo n [facility] weight 2022-08-23 14:30:00 215 [lb_av] Comm on [facility] temperature 2022-08-23 14:30:00 97.5 [degF] Com mon [facility] bmi 2022-08-23 14:30:00 32.69 kg/m2 Comm on [facility] oximetry 2022-08-23 14:30:00 98 % Commo n [facility] respiratory rate 2022-08-23 14:30:00 18 /min Common [facility] blood pressure systolic 2022-08-23 14:30:00 146 mm[Hg[facility] blood pressure diastolic 2022-08-23 14:30:00 68 mm[Hg] Common [facility] height 2022-08-02 11:30:00 68 [in_i] Commo n [facility] weight 2022-08-02 11:30:00 211 [lb_av] Comm on [facility] temperature 2022-08-02 11:30:00 97.3 [degF] Com [facility] bmi 2022-08-02 11:30:00 32.08 kg/m2 Comm on [facility] oximetry 2022-08-02 11:30:00 97 % Commo n [facility] respiratory rate 2022-08-02 11:30:00 16 /min [facility] blood pressure systolic 2022-08-02 11:30:00 163 mm[Hg] [facility] blood pressure diastolic 2022-08-02 11:30:00 73 mm[Hg] [facility] BP Systolic 2021-01-18 00:00:00 115 mm[Hg] [facility] Weight 2021-01-18 00:00:00 210 [lb_av] [facility] BP Diastolic 2021-01-18 00:00:00 80 mm[Hg] [facility] Height 2021-01-18 00:00:00 68 [in_i] [facility] BMI (Body Mass Index) 2021-01-18 00:00:00 31.9 kg/m2 [facility] Plan of Care Planned Activity Planned Date [...] meds at this time. Patient report h] [facility] Instructions [facility] Practice Encounters Start Date/Time End Date/Time Encounter Type Admission Type Attending Clinicians Care Facility Care Department Encounter ID Source 2022-08-02 11:23:07 Outpatient Gopi Thacker [facility] [id number] [facility] 2024-07-23 14:00:00 2024-07-23 14:00:00 Outpatient KODAK MORA CRAIG [facility] [id number] [facility] 2024-07-15 09:00:00 2024-07-15 09:00:00 Outpatient KODAK MORA CRAIG [facility] [id number] [facility] 2022-08-29 00:00:00 2022-08-29 00:00:00 (TEL) [facility] [id number] [facility] 2022-08-23 00:00:00 2022-08-23 00:00:00 OFFICE VISIT ESTAB [facility] 2 [facility] [id number] [facility] 2022-08-02 00:00:00 2022-08-02 00:00:00 OFFICE VISIT NEW PT LEVEL 4 [facility] [id number] [facility] 2021-03-17 06:24:00 2021-03-17 06:24:00 Outpatient Miller_S_AH [facility] [id number] [facility] e 2021-02-16 02:43:00 2021-02-16 02:43:00 Outpatient Jayashree-Wendyo _A_AH [facility] [id number] [facility] 2021-01-24 09:05:00 2021-01-24 09:05:00 Outpatient Jayashree-Mbayo _A_AH [facility] [id number] [facility] 2021-01-23 11:13:00 2021-01-23 11:13:00 Outpatient Jayashree-Mbayo _A_AH [facility] VFP [id number] [facility] 2021-01-19 09:44:00 2021-01-19 09:44:00 Outpatient Jayashree-Mbayo _A_AH [facility] VFP [id number] [facility] 2021-01-18 00:00:00 2021-01-18 00:00:00 Elvia razo, 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 VFP [place] - [facility] - [email or web address]_ [place] [employer] [id number] [facility] 2020-04-14 12:32:00 2020-04-14 12:32:00 Outpatient Jayashree-Mbayo _A_AH [facility] VFP [id number] [facility] 2020-04-14 12:32:00 2020-04-14 12:32:00 Outpatient Jayashree-Mbayo _A_AH [facility] VFP [id number] [facility] 2019-11-19 07:18:00 2019-11-19 07:18:00 Outpatient Jayashree-Mbayo _A_AH [facility] VFP [id number] [facility] 2019-11-19 07:18:00 2019-11-19 07:18:00 Outpatient Jayashree-Mbayo _A_AH VFP VFP [id number] [facility]
--- NOTE | 2024-07-20 11:23 | ER ---
Nurse's Notes [facility] Name: Rj Parkinson Age: 78 yrs Sex: Male : 1945 Arrival Date: 07/20/2024 Time: 10:37 Bed IW1 Private MD: Diagnosis: Other mechanical complication of unspecified cardiac and vascular devices and implants, initial encounter-PICC , FLUSHED Presentation: 07/20 11:00 Coronavirus screen: Vaccine status: At this time, the client does not indicate any ll1 symptoms associated with coronavirus-19. Onset of symptoms was July 19, 2024. 11:01 Chief complaint: Patient states: R PICC red line stopped infusing last night. Ebola ll1 Screen: Patient denies travel to an Ebola-affected area in the 21 days before illness onset. Initial Sepsis Screen: Does the patient meet any 2 criteria? No. Patient's initial sepsis screen is negative. Does the patient have a suspected source of infection? No. Patient's initial sepsis screen is negative. Risk Assessment: Do you want to hurt yourself or someone else? Patient reports no desire to harm self or others. 11:01 Method Of Arrival: Ambulatory ll1 11:01 Acuity: DHARA 5 ll1 Triage Assessment: 10:52 General: Appears in no apparent distress. Behavior is calm, cooperative, appropriate ll1 for age. General: Reports R arm PICC. Pain: Denies pain. Neuro: No deficits noted. Musculoskeletal: Circulation, motion, and sensation intact. Capillary refill < 3 seconds, in right fingers. Historical: - Allergies: 10:52 Latex; ll1 - PMHx: 10:52 Cancer; Cholelithiasis; COPD; Diabetes - IDDM; diabetes mellitus; Hypertensive disorder;ll1 - PSHx: 10:52 hip replacement x2; ll1 - Immunization history:: Adult Immunizations up to date. - Infectious Disease History:: Denies. - Family history:: not pertinent. - Social history:: Smoking status: Patient denies any tobacco usage or history of. Screenin:00 [facility] ED Fall Risk Assessment (Adult) History of falling in the last 3 months, ll1 including since admission No falls in past 3 months (0 pts) Confusion or Disorientation No (0 pts) Intoxicated or Sedated No (0 pts) Impaired Gait No (0 pts) Mobility Assist Device Used Yes (1 pt) Altered Elimination No (0 pt) Score/Fall Risk Level 0 - 2 = Low Risk Maintained a safe environment, Hourly rounding (assess needs \T\ fall precautionary measures) done. Abuse screen: Denies threats or abuse. Nutritional screening: No deficits noted. Tuberculosis screening: No symptoms or risk factors identified. Assessment: 10:50 Reassessment: red port would not flush. Purple port flushes easily. States he will use ll1 purple port, and follow-up with his doctor. Vital Signs: 11:01 BP 155 / 66; Pulse 77; Resp 16; Temp 97.8; Pulse Ox 100% ; Pain 0/10; ll1 11:01 Pain Scale: Adult ll1 ED Course: 10:38 Patient arrived in ED. im 10:40 Bradley Peña MD is Attending Physician. [facility] 10:53 Arm band placed on. ll1 11:00 No provider procedures requiring assistance completed. Patient did not have IV access ll1 during this emergency room visit. 11:02 Triage completed. ll1 11:22 Patient has correct armband on for positive identification. Provided Education on: ll1 return as needed. Cardiac monitoring not applicable on this patient. Administered Medications: No medications were administered Medication: 11:22 VIS not applicable for this client. ll1 Outcome: 11:22 Discharge ordered by . [facility] 11:22 Discharged to home ambulatory, ll1 11:22 Condition: stable 11:22 Discharge instructions given to patient, Instructed on discharge instructions, follow up and referral plans. Demonstrated understanding of instructions, follow-up care, left with verbal discharge instructions only 11:25 Patient left the ED. ll1 Signatures: Bradley Peña MD MD cha Lewis, Lynsay RN RN ll1 Maria G Rivas
--- NOTE | 2024-07-20 11:23 | EDPHYS ---
Physician Documentation [facility] Name: Rj Parkinson Age: 78 yrs Sex: Male : 1945 Arrival Date: 07/20/2024 Time: 10:37 Bed IW1 Private MD: ED Physician Bradley Peña HPI: 07/20 11:11 This 78 yrs old Male presents to ER via Ambulatory with complaints of picc line problem.khalif 11:11 The patient or guardian complains of picc not working. The complaints affect the right khalif bicep. Context: The problem was sustained at work, resulted from unknown cause. Onset: The symptoms/episode began/occurred yesterday, last night. Treatment prior to arrival includes: no previous treatment. Modifying factors: The symptoms are alleviated by nothing. the symptoms are aggravated by nothing. Associated signs and symptoms: The patient has no apparent associated signs or symptoms. Severity of symptoms: At their worst the symptoms were mild, in the emergency department the symptoms are unchanged. The patient has experienced similar episodes in the past, a few times. Historical: - Allergies: 10:52 Latex; ll1 - PMHx: 10:52 Cancer; Cholelithiasis; COPD; Diabetes - IDDM; diabetes mellitus; Hypertensive disorder;ll1 - PSHx: 10:52 hip replacement x2; ll1 - Immunization history:: Adult Immunizations up to date. - Infectious Disease History:: Denies. - Family history:: not pertinent. - Social history:: Smoking status: Patient denies any tobacco usage or history of. ROS: 11:11 Constitutional: Negative for fever, chills, and weight loss, Eyes: Negative for injury, khalif pain, redness, and discharge, ENT: Negative for injury, pain, and discharge, Neck: Negative for injury, pain, and swelling, Cardiovascular: Negative for chest pain, palpitations, and edema, Respiratory: Negative for shortness of breath, cough, wheezing, and pleuritic chest pain, Abdomen/GI: Negative for abdominal pain, nausea, vomiting, diarrhea, and constipation, Back: Negative for injury and pain, : Negative for injury, bleeding, discharge, and swelling, Skin: Negative for injury, rash, and discoloration, Neuro: Negative for headache, weakness, numbness, tingling, and seizure, Psych: Negative for depression, anxiety, suicide ideation, homicidal ideation, and hallucinations, Allergy/Immunology: Negative for hives, rash, and allergies, Endocrine: Negative for neck swelling, polydipsia, polyuria, polyphagia, and marked weight changes, Hematologic/Lymphatic: Negative for swollen nodes, abnormal bleeding, and unusual bruising, 11:11 MS/extremity: Positive for PICC NOT FLUSHING, Exam: 11:11 Constitutional: This is a well developed, well nourished patient who is awake, alert, khalif and in no acute distress. Head/Face: Normocephalic, atraumatic. Eyes: Pupils equal round and reactive to light, extra-ocular motions intact. Lids and lashes normal. Conjunctiva and sclera are non-icteric and not injected. Cornea within normal limits. Periorbital areas with no swelling, redness, or edema. ENT: Nares patent. No nasal discharge, no septal abnormalities noted. Tympanic membranes are normal and external auditory canals are clear. Oropharynx with no redness, swelling, or masses, exudates, or evidence of obstruction, uvula midline. Mucous membranes moist. Neck: Trachea midline, no thyromegaly or masses palpated, and no cervical lymphadenopathy. Supple, full range of motion without nuchal rigidity, or vertebral point tenderness. No Meningismus. Chest/axilla: Normal chest wall appearance and motion. Nontender with no deformity. No lesions are appreciated. Cardiovascular: Regular rate and rhythm with a normal S1 and S2. No gallops, murmurs, or rubs. Normal PMI, no JVD. No pulse deficits. Respiratory: Lungs have equal breath sounds bilaterally, clear to auscultation and percussion. No rales, rhonchi or wheezes noted. No increased work of breathing, no retractions or nasal flaring. Abdomen/GI: Soft, non-tender, with normal bowel sounds. No distension or tympany. No guarding or rebound. No evidence of tenderness throughout. Back: No spinal tenderness. No costovertebral tenderness. Full range of motion. Male : Normal genitalia with no discharge or lesions. Skin: Warm, dry with normal turgor. Normal color with no rashes, no lesions, and no evidence of cellulitis. Vital Signs: 11:01 BP 155 / 66; Pulse 77; Resp 16; Temp 97.8; Pulse Ox 100% ; Pain 0/10; ll1 11:01 Pain Scale: Adult ll1 MDM: 10:40 Medical Screening Exam initiated [facility] 11:15 Data reviewed: vital signs, nurses notes. Consideration of Admission/Observation khalif Escalation of care including admission/observation considered. I considered the following discharge prescriptions or medication management in the emergency department Medications were administered in the Emergency Department. See MAR. Historians other than the Patient: PT WELL INFORMED. Care significantly affected by the following chronic conditions: Diabetes, Hypertension, Chronic Obstructive Pulmonary Disease, Cancer. Administered Medications: No medications were administered Disposition Summary: 07/20/24 11:22 Discharge Ordered Notes: Location: Home khalif Problem: new khalif Symptoms: have improved khalif Condition: Stable khalif Diagnosis - Other mechanical complication of unspecified cardiac and vascular devices and khalif implants, initial encounter - PICC , FLUSHED Followup: khalif - With: Private Physician - When: 2 - 3 days - Reason: Recheck today's complaints, Continuance of care, Re-evaluation by your physician Discharge Instructions: - Discharge Summary Sheet khalif - PICC Home Care Guide khalif - PICC Insertion, Care After khalif - PICC Insertion khalif Forms: - Medication Reconciliation Form khalif - Antibiotic Education khalif - Prescription Opioid Use khalif - Patient Portal Instructions [facility] - Leadership Thank You Letter [facility] Signatures: Bradley Peña MD MD cha Lewis, Lynsay, RN RN ll1
[2024-07-20 14:27] VITALS: BP 155/66; TEMP 97.8; O2SAT 100
== END 2024-07-20 11:25 | disposition home or self-care (01) ==
LOC: ER 10:37
DX: T82.594A Other mechanical complication of infusion catheter, initial encounter (principal)
CPT/HCPCS: 99282

== ENCOUNTER 2025-02-06 07:37 | Day surgery (SDC) | payer OTHER ==
[2025-02-02 10:10] LABS: Absolute Eosinophils 0.1 K/uL (0-0.5); Absolute Lymphocytes (CBC) 0.9 K/uL (0.7-4.9); Absolute Monocytes 0.9 K/uL (0.1-1.3); Absolute Neutrophil 6.1 K/uL (1.8-8.0); Basophils % 0.6 % (0-1.3); Eosinophils % 1.7 % (0-4.4); Hematocrit 39.7 % (39.6-49.0); Hemoglobin 13.6 g/dL (13.6-17.9); Lymphocytes % 10.7 % (15.3-44.8); MCH 27.9 pg (27.0-35.0); MCHC 34.1 g/dL (32.0-36.0); MCV 81.7 fL (80-100); MPV 9.7 fL (7.6-11.3); Monocytes % 11.7 % (3.3-12.3); Neutrophils % 75.3 % (41.7-73.7); Nucleated Red Blood Cells % 0.1 % (0-0); Platelets 263 thou/uL (152-406); RBC Red Blood Cell Count 4.86 M/uL (4.33-5.43); Red Cell Distribution Width 15.2 % (12.1-15.2)
[2025-02-02 10:26] LABS: Anion Gap 9.9 mEq/L (5.0-15.0); Potassium 3.9 mEq/L (3.5-5.1)
--- NOTE | 2025-02-02 12:02 | EKG ---
Test Date: 2025-02-02 Test Time: 09:59:24 Sonar Watchstander: SUSAN MEASUREMENT RESULTS: Intervals: Rate: 50 MS: 170 QRSD: 72 QT: 446 QTc: 406 Newton: P: 82 MS: 170 QRS: 45 T: 59 INTERPRETIVE STATEMENTS: Sinus bradycardia Low voltage QRS Borderline ECG Compared to ECG 04/16/2023 09:39:52 Sinus arrhythmia no longer present Myocardial infarct finding no longer present Electronically Signed On 02-02-25 12:01:32 CDT by Alexander Barreto
[2025-02-06] MEDS: Ringers Lactate 1,000 ML IV ONE (09:13)
[2025-02-06] MEDS: LIDOCAINE HCL/EPINEPHRINE 20 ML MDV ONE (09:25)
[2025-02-06] MEDS ORDERED: LIDOCAINE 2% MPF 5 ML VIAL ONE (09:48)
[2025-02-06] MEDS ORDERED: ONDANSETRON 4 MG/2 ML VIAL ONE (09:48)
[2025-02-06] MEDS ORDERED: FENTANYL CITR 100 MCG/2 ML ONE (09:49)
[2025-02-06] MEDS ORDERED: propofoL 200 MG/20 ML VIAL IV ONE (09:49)
[2025-02-06] MEDS ORDERED: BSS OPTHALMIC SOL 15 ML OPTH ONE (09:55)
--- NOTE | 2025-02-06 12:22 | P.OP ---
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 The head of bed was turned to 180 degrees for better access to the surgical sites. The patient's right scalp was examined. There was a 2.5 cm ulceration with thick crusting on the right temporal/frontal scalp clinically suspicious for cutaneous malignancy. Approximately 2 to 3 cm posterior on the right temporal scalp there was a 1 x 1 cm area of thick crusting without ulceration. Additionally on the patient's left superior helix was a 2-1/2 x 1- 1/2 cm area of ulceration of the skin which was adherent to the overlying cartilage and highly suspicious for cutaneous malignancy. The skin around all of the lesions was injected with 1% lidocaine with epinephrine. A total of 5 mL was used. The patient's ears and scalp were prepped with Betadine and draped in a sterile fashion. A 15 blade scalpel was used to perform a shave biopsy on the right parietal area of crusting and the specimen was sent without orientation to pathology for frozen section analysis. Judicious cauterization was performed to obtain hemostasis. A needlepoint Bovie electrocautery was used to perform excision of the right temporal scalp lesion with a 5 to 7 mm gross margin. The full-thickness skin and subcutaneous tissue was incised. A suture was placed at the superiormost aspect of the incision marking 12:00. The dissection was taken down to the layer of loose aponeurotic tissue. The specimen was elevated at this layer with no clinically apparent deep invasion in this area. The specimen was then sent to pathology for frozen section analysis. A small vessel near the 12:00 margin was clamped and tied with a 3-0 silk suture. Bleeding was otherwise very minimal. The defect measured approximately 3-1/2 cm in maximal diameter. Attention was then turned to the left ear. After consideration it was felt the deep aspect of the mass was likely adherent and possibly invading the underlying cartilage and therefore simple skin excision was unlikely to provide a pathologically negative margin. It was decided to perform a partial auriculecto my. A peripheral skin margin was designed approximately 5 mm around the clinically apparent lesion. The needlepoint Bovie electrocautery was used to incise through the skin around this area and excision was carried out in a full- thickness fashion including excision of cartilage. A suture was placed at the superior/medial aspect to indicate 12:00. The specimen was then brought to pathology and gross examination was performed in conjunction with the pathologist. Due to the complex geometry of the specimen with cartilage, it was felt that frozen section may compromise full evaluation of the specimen and decision was made to forego frozen section in favor of more definitive evaluation with paraffin block only. Upon return to the operating room a additional 2 to 3 mm of cartilage was removed from the deep aspect of the wound in order to facilitate closure of the wound. This additional portion of cartilage was sent to the pathologist without orientation for permanent section only. Removal of this cartilage allowed the skin from the anterior aspect of the pinna to fold over and the anterior and posterior skin flaps were closed in a layered fashion using 4-0 Vicryl buried sutures for approximation of the skin edges followed by 5-0 plain gut running sutures. 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 In consideration of the finding, decision was made to perform more aggressive cauterization at the wound base rather than de eper excision. The needlepoint Bovie electrocautery was used to perform cauterization to the level of the subcutaneous fat. 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 TheraSkin was obtained and prepared according to colorist dyer's instructions. The allograft was then trimmed to fit the right temporal scalp defect which measured approximately 3- 1/2 cm in diameter. The graft was secured using 8 point radial sutures with a 3-0 silk. A bolster composed of Xeroform and cotton balls was applied to the allograft and secured using the 3-0 silk sutures. Antibiotic ointment was applied to the left ear and the right parietal scalp. The remaining area was cleaned and dried and the patient was returned to care of anesthesia for awakening extubation in the operating room and transfer to the recovery room which proceeded without complication. Verbal and written instructions are administered to the patient/family in regards to wound care. Specifically they are instructed to avoid removal of the bolster until follow-up visit in approximately 10 days. The left ear and right parietal scalp should be kept clean and dry with soap and water followed by application of antibiotic ointment. Complications: None Implants: none Fluids & blood products: see anesthsia recorrds Transferred to: Recovery Room Condition: Good
[2025-02-06 13:15] VITALS: BP 165/79; O2SAT 98
[2025-02-06 13:16] VITALS: TEMP 97
== END 2025-02-06 13:05 | disposition home or self-care (01) ==
LOC: OR 07:37
PROVIDERS: ATTEND Otolaryngology
PROC: 0HR0XK3 Replacement of Scalp Skin with Nonautologous Tissue Substitute, Full Thickness, External Approach (ICD-10-PCS; 2025-02-06)
PROC: 0HB0XZX Excision of Scalp Skin, External Approach, Diagnostic (ICD-10-PCS; 2025-02-06)
PROC: 09B1XZZ Excision of Left External Ear, External Approach (ICD-10-PCS; principal; 2025-02-06 09:00)
DX: C44.219 Basal cell carcinoma of skin of left ear and external auricular canal (principal); C44.42 Squamous cell carcinoma of skin of scalp and neck; L57.0 Actinic keratosis
CPT/HCPCS: 93005; 85025; 80048; 36415; 88331; 88332; 88305; 69110; 11624; 15275; 11106; J2704; J2003; J3010; J2405; J7120